=== PATIENT | male | born 1985 ===

== ENCOUNTER 2017-01-26 12:48 | Emergency (ER) | payer OTHER ==
--- NOTE | 2017-01-26 15:13 | DIAGNOSTIC IMAGING REPORT ---
PROCEDURE: CT ABD/PELVIS WITH CONTRAST INDICATION: Right abdominal pain. Nausea and vomiting. Prior cholecystectomy. TECHNIQUE: 145 ml of Isovue 300 were injected intravenously and axial images were obtained of the entire abdomen and pelvis with sagittal and coronal reformations. COMPARISON: Compared to CT abdomen pelvis on 11/06/2010. FINDINGS: ABDOMEN: Status post cholecystectomy (surgical clips). Moderate to marked fatty infiltration of the liver. Liver is otherwise normal. Borderline splenomegaly (13.5 cm) with a 2 cm accessory splenic nodule. Pancreas, kidneys, and aorta are normal. Bowel pattern is normal, including a medially located appendix. PELVIS: Pelvic structures are normal. No evidence of free fluid. IMPRESSION: 1. Status post cholecystectomy. 2. Moderate to marked fatty infiltration of the liver. 3. Borderline splenomegaly (13.5 cm). 4. Otherwise negative CT abdomen and pelvis. 5. Findings discussed with Dr. Mikey Galo. All CT scans at this facility use dose modulation, iterative reconstruction, and/or weight-based dosing when appropriate to reduce radiation dose to as low as reasonably achievable.
--- NOTE | 2017-01-26 15:50 | ED NURSING NOTES ---
Clinical Report - Nurses [facility] [place] [address] 01/26/2017 12:51 Patient: JEMAL SMITH TRIAGE Triage time 12:59. Acuity: LEVEL 3. Chief Complaint: ABDOMINAL PAIN, NAUSEA, VOMITING and DIARRHEA. SEPSIS SCREEN: Sepsis Screen. Negative (no infection suspected/documented). --13:04 Marjan Herrera R.N. 12:59 01/26/17. BP: 120/65 (large adult cuff) taken on the left arm, while lying. HR: 106. RR: 20. O2 saturation: 95%. Temp: 99 F. Pain level now: 04/24. --13:04 Marjan Herrera R.N. Weight: 154.2 kg stated. Height/Length: 70 inches Per Patient. BMI: 48.8. --13:00 Marjan Herrera R.N. Medications None. --13:00 Marjan Herrera R.N. Allergies Sulfa. --13:00 Marjan Herrera R.N. History Arrived by private vehicle. Historian: patient. Primary physician (sue haas md). This started today. He has had nausea, vomiting, diarrhea and abdominal pain. Last oral intake by patient was (3 hours ago). SOCIAL HX: Former smoker, end date 1996. No alcohol use or drug use. No recent travel. No infectious disease exposure. No known contact with a sick individual. ABUSE ASSESSMENT: No report of abuse. --13:04 Marjan Herrera R.N. PROBLEMS: Gastroesophageal Reflux Disease. Gastroenteritis. --13:00 Marjan Herrera R.N. ADDITIONAL SURGERIES: Cholecystectomy. Gallbladder Surgery. --13:00 Marjan Herrera R.N. Interventions ID band on patient. To treatment room. --13:04 Marjan Herrera R.N. PHYSICAL ASSESSMENT GENERAL / NEURO / PSYCH: Oriented X 4. Appears in no acute distress. Appears anxious. RESPIRATORY: Respirations not labored. Breath sounds within normal limits. CVS: Normal sinus rhythm noted. GI / : Abdominal tenderness. Hyperactive bowel sounds in all quadrants. SKIN: Skin is warm and dry. --13:18 Marjan Herrera R.N. NURSING PROGRESS NOTES ( pt vomited approx 100 green emesis). --13:19 Marjan Herrera R.N. 13:32 01/26/2017 Site #1 started via IV in the right antecubital space with an 20g angiocath, with aseptic technique and good blood return; one attempt. Blood drawn: rainbow set. Labeled in the presence of the patient and sent to the lab. Saline lock flushed with 10 mL saline. --13:33 Hallie Lockett R.N. 13:56 01/26/2017 Started bag #1 1000 mL IV Fluids IV NS (Saline); bolus of 1000 mL over 1 hour(s) via site #1. Allergies verified and confirmed 5 rights. IV patency established. IV site checked: no pain, redness, or swelling. IV flushed thoroughly pre- and post-medication administration. --13:57 Hallie Lockett R.N. 13:57 01/26/2017 Zofran (Ondansetron HCl) IVP 4 mg given over 2 minute(s) via site #1. Allergies verified and confirmed 5 rights. IV patency established. IV site checked: no pain, redness, or swelling. IV flushed thoroughly pre- and post-medication administration. IVP given by RN. --13:57 Hallie Lockett R.N. 14:38 01/26/17. BP: 120/85. HR: 104. RR: 16. O2 saturation: 99%. Pain level now: 12/23. --14:39 Hallie Lockett R.N. Patient ID band checked for patient name and birthdate: patient confirmed. Instructions provided to collect clean catch urine and patient verbalized understanding. Clean catch urine collected with return of yellow-colored clear urine; sample sent to lab for urinalysis and culture. Specimen labeled in the presence of the patient. Patient walked to [place] with tech. (14:47 Jan 26 2017). --14:48 Hallie Lockett R.N. 15:07 01/26/2017 Bentyl (Dicyclomine HCl) PO 20 mg given. Allergies verified and confirmed 5 rights. --15:07 Hallie Lockett R.N. DISPOSITION / DISCHARGE Departure time: 16:Jan 26 2017. Condition at departure: improved. No learning barriers present. Discharge instructions provided and reviewed with the patient. Reviewed medication(s) side effects, precautions, dosing and course information. Prescription(s) given to the patient. Reviewed referral to a primary care physician. Work note given. Patient verbalized understanding. Written instructions provided in Gabonese. The patient was discharged home and accompanied by spouse. He left the Emergency Department ambulatory and via private vehicle. Spouse driving. --16:01 Hallie Lockett R.N. 16:00 01/26/17. BP: 125/101. HR: 113. RR: 16. O2 saturation: 97%. Pain level now: 11/25. --16:01 Hallie Lockett R.N. 16:02 01/26/2017 Site #1 removed upon discharge. Bandaid applied. --16:03 Hallie Lockett R.N. Locked/Released at 01/26/2017 16:08 by Hallie Lockett R.N.
--- NOTE | 2017-01-26 15:50 | ED NURSING NOTES ---
Clinical Report - Nurses [facility] [place] [address] 01/26/2017 12:51 Patient: JEMAL SMITH TRIAGE Triage time 12:59. Acuity: LEVEL 3. Chief Complaint: ABDOMINAL PAIN, NAUSEA, VOMITING and DIARRHEA. SEPSIS SCREEN: Sepsis Screen. Negative (no infection suspected/documented). --13:04 Marjan Herrera R.N. 12:59 01/26/17. BP: 120/65 (large adult cuff) taken on the left arm, while lying. HR: 106. RR: 20. O2 saturation: 95%. Temp: 99 F. Pain level now: 04/24. --13:04 Marjan Herrera R.N. Weight: 154.2 kg stated. Height/Length: 70 inches Per Patient. BMI: 48.8. --13:00 Marjan Herrera R.N. Medications None. --13:00 Marjan Herrera R.N. Allergies Sulfa. --13:00 Marjan Herrera R.N. History Arrived by private vehicle. Historian: patient. Primary physician (sue haas md). This started today. He has had nausea, vomiting, diarrhea and abdominal pain. Last oral intake by patient was (3 hours ago). SOCIAL HX: Former smoker, end date 1996. No alcohol use or drug use. No recent travel. No infectious disease exposure. No known contact with a sick individual. ABUSE ASSESSMENT: No report of abuse. --13:04 Marjan Herrera R.N. PROBLEMS: Gastroesophageal Reflux Disease. Gastroenteritis. --13:00 Marjan Herrera R.N. ADDITIONAL SURGERIES: Cholecystectomy. Gallbladder Surgery. --13:00 Marjan Herrera R.N. Interventions ID band on patient. To treatment room. --13:04 Marjan Herrera R.N. PHYSICAL ASSESSMENT GENERAL / NEURO / PSYCH: Oriented X 4. Appears in no acute distress. Appears anxious. RESPIRATORY: Respirations not labored. Breath sounds within normal limits. CVS: Normal sinus rhythm noted. GI / : Abdominal tenderness. Hyperactive bowel sounds in all quadrants. SKIN: Skin is warm and dry. --13:18 Marjan Herrera R.N. NURSING PROGRESS NOTES ( pt vomited approx 100 green emesis). --13:19 Marjan Herrera R.N. 13:32 01/26/2017 Site #1 started via IV in the right antecubital space with an 20g angiocath, with aseptic technique and good blood return; one attempt. Blood drawn: rainbow set. Labeled in the presence of the patient and sent to the lab. Saline lock flushed with 10 mL saline. --13:33 Hallie Lockett R.N. 13:56 01/26/2017 Started bag #1 1000 mL IV Fluids IV NS (Saline); bolus of 1000 mL over 1 hour(s) via site #1. Allergies verified and confirmed 5 rights. IV patency established. IV site checked: no pain, redness, or swelling. IV flushed thoroughly pre- and post-medication administration. --13:57 Hallie Lockett R.N. 13:57 01/26/2017 Zofran (Ondansetron HCl) IVP 4 mg given over 2 minute(s) via site #1. Allergies verified and confirmed 5 rights. IV patency established. IV site checked: no pain, redness, or swelling. IV flushed thoroughly pre- and post-medication administration. IVP given by RN. --13:57 Hallie Lockett R.N. 14:38 01/26/17. BP: 120/85. HR: 104. RR: 16. O2 saturation: 99%. Pain level now: 12/23. --14:39 Hallie Lockett R.N. Patient ID band checked for patient name and birthdate: patient confirmed. Instructions provided to collect clean catch urine and patient verbalized understanding. Clean catch urine collected with return of yellow-colored clear urine; sample sent to lab for urinalysis and culture. Specimen labeled in the presence of the patient. Patient walked to [place] with tech. (14:47 Jan 26 2017). --14:48 Hallie Lockett R.N. 15:07 01/26/2017 Bentyl (Dicyclomine HCl) PO 20 mg given. Allergies verified and confirmed 5 rights. --15:07 Hallie Lockett R.N. DISPOSITION / DISCHARGE Departure time: 16:Jan 26 2017. Condition at departure: improved. No learning barriers present. Discharge instructions provided and reviewed with the patient. Reviewed medication(s) side effects, precautions, dosing and course information. Prescription(s) given to the patient. Reviewed referral to a primary care physician. Work note given. Patient verbalized understanding. Written instructions provided in Cypriot. The patient was discharged home and accompanied by spouse. He left the Emergency Department ambulatory and via private vehicle. Spouse driving. --16:01 Hallie Lockett R.N. 16:00 01/26/17. BP: 125/101. HR: 113. RR: 16. O2 saturation: 97%. Pain level now: 11/25. --16:01 Hallie Lockett R.N. 16:02 01/26/2017 Site #1 removed upon discharge. Bandaid applied. --16:03 Hallie Lockett R.N. Locked/Released at 01/26/2017 16:08 by Hallie Lockett R.N.
--- NOTE | 2017-01-26 15:50 | ED ORDER SUMMARY ---
..... Patient: JEMAL SMITH OrderSheet [facility] VisitID: [id number] [place] [address] 31y, M Registration Date/Time: 01/26/2017 ORDER SHEET Weight: 154.2 kg (stated) Allergies: Sulfa GENERAL ORDERS: CBC w Diff Urgent (13:49 01/26/2017 Jax Hernandez) (Ack 13:50 David) (13:56 KKnebel R.N.) CMP Urgent (13:49 01/26/2017 Jax Hernandez) (Ack 13:50 David) (13:56 Shelbybel R.N.) UA-Culture if indicated Urgent (13:49 01/26/2017 Jax Hernandez) (Ack 13:50 David) (15:08 KKnebel R.N.) Amylase Urgent (13:49 01/26/2017 Jax Hernandez) (Ack 13:50 David) (13:56 KKnebel R.N.) Lipase Urgent (13:49 01/26/2017 Jax Hernandez) (Ack 13:50 David) (13:56 TODDnebel R.N.) CT Abd/Pel w Cont (No) (09/15) Urgent (14:36 01/26/2017 Jax Hernandez) (Ack 14:37 David) (15:05 [place]) MEDICATION ORDERS: Bentyl PO 20 mg (NOW) (14:35 01/26/2017 Jax Hernandez) (15:07 TODDnechely R.N.) IV FLUIDS: IV NS : initial bolus none -, then 1000 mL/hr for X1 (NOW) (13:48 01/26/2017 Jax Hernandez) (13:57 Haven R.N.) Zofran IV 4 mg (NOW) (13:48 01/26/2017 Jax Hernandez) (13:57 Haven R.N.) ORDER SHEET NOTES: [Electronically signed by Mikey Galo Dr. (15:52 01/26/2017)] [Electronically signed by Hallie Lockett R.N. (16:01/26/2017)] [Electronically locked/signed by Hallie Lockett R.N. (16:01/26/2017)]
--- NOTE | 2017-01-26 15:50 | ED CLINICAL REPORT ---
Clinical Report - Physicians/Mid Levels [facility] [address] [place] [address] 01/26/2017 12:51 Patient: JEMAL SMITH Time Seen: 12:58; initial patient contact. Arrived- By private vehicle. Historian- patient. HISTORY OF PRESENT ILLNESS Chief Complaint: VOMITING and DIARRHEA. This started today and is still present (persistent). It was abrupt in onset and has been constant. The patient has had nausea, vomiting, diarrhea and abdominal pain. No black stools, bloody stools, constipation, flank pain or known contact with a sick individual. Has not recently been on antibiotics. The illness is described as moderate. Similar symptoms previously: None. Recent medical care: Not recently seen/assessed. REVIEW OF SYSTEMS No fever, difficulty with urination or dark urine. All systems otherwise negative, except as recorded above. PAST HISTORY Gastroesophageal Reflux Disease. Gastroenteritis. SURGERIES: Cholecystectomy. Medications: None. Allergies: Sulfa. SOCIAL HISTORY Former smoker. No alcohol use or drug use. ADDITIONAL NOTES The nursing notes have been reviewed. PHYSICAL EXAM Vital Signs: 01/26/2017 12:59 BP: 120/65. HR: 106. RR: 20. O2 saturation: 95%. Temp: 99 F. Pain level now: 7/10. Have been reviewed. Blood pressure normal. Tachycardic. Respiratory rate normal. Temperature normal. Oxygen saturation normal. Appearance: Alert. Oriented X3. Patient in mild distress. Eyes: Eyes normal inspection. No scleral icterus. ENT: Dry mucous membranes present. CVS: Tachycardia. Heart sounds normal. Rhythm normal. Respiratory: No respiratory distress. Breath sounds normal. Abdomen: Soft. Mild tenderness diffusely. No guarding, rebound tenderness or obturator or psoas sign present. Bowel sounds normal. No organomegaly. No mass. Obese. Back: Normal inspection. No CVA tenderness. Skin: Skin warm and dry. Normal skin color. No rash. Extremities: No lower extremity edema. Neuro: Oriented X 3. LABS, X-RAYS, AND EKG Abdominal CT: 1. Status post cholecystectomy. 2. Moderate to marked fatty infiltration of the liver. 3. Borderline splenomegaly (13.5 cm). 4. Otherwise negative CT abdomen and pelvis. Study type: abdomen and pelvis. Abdominal CT performed with IV contrast. The study was independently viewed by me, interpreted by the radiologist and discussed with the radiologist. Interpretation time: 15:42. Laboratory Tests: CBC w Diff: (MENDOZA: 01/26/2017 13:30) ( MsgRcvd 01/26/2017 14:01) Final results Test Result Flag Units (Reference) WHITE BLOOD COUNT 16.4 H K/uL (4.5-11.5) RED BLOOD COUNT 5.89 M/uL (4.50-5.90) HEMOGLOBIN 15.5 gm/dL (13.5-17.5) HEMATOCRIT 47.4 % (41.0-53.0) MEAN CELL VOLUME 80 fL (80-100) MEAN CORPUSCULAR HGB 26 pg (26-34) MEAN CORPUSCULAR HGB CONC 33 g/dL (31-37) RED CELL DISTRIBUTION WIDTH 15.3 H % (11.6-14.8) PLATELET COUNT 338 K/uL (150-400) NEUTROPHIL % 89.0 H % (50-75) LYMPH % 5.2 L % (25-40) MONO % 4.4 % (3-14) EOSINOPHIL % 0.9 % (0-4) BASOPHIL % 0.5 % (0-2) CMP: (MENDOZA: 01/26/2017 13:30) ( MsgRcvd 01/26/2017 14:11) Final results Test Result Flag Units (Reference) GLUCOSE 123 H mg/dL (70-110) BUN 12 mg/dL (7-18) CREATININE 1.0 mg/dL (0.6-1.3) Estimated GFR >60 mL/min Estimated GFR- >60 mL/min Note: Persistent reduction over 3 months in eGFR<60 mL/min/1.73 m2 defines CKD. Patients with eGFR values>=60 mL/min/1.73 m2 may also have CKD if evidence ofpersistent proteinuria. Additional information may be foundat www.kidney.org. SODIUM 138 mmol/L (136-145) POTASSIUM 3.9 mmol/L (3.5-5.1) CHLORIDE 104 mmol/L (98-107) CARBON DIOXIDE 24 mmol/L (21-32) CALCIUM 8.7 mg/dL (8.5-10.1) TOTAL PROTEIN 8.8 H g/dL (6.4-8.2) ALBUMIN 3.5 g/dL (3.3-5.0) BILIRUBIN, TOTAL 0.5 mg/dL (0.0-1.0) ALKALINE PHOSPHATASE 139 H U/L (46-116) AST (SGOT) 25 U/L (15-37) ALT (SGPT) 43 U/L (12-78) LIPASE 103 U/L (73-393) AMYLASE 34 U/L (25-115) . PROGRESS AND PROCEDURES Disposition: Discharged home in good and improved condition. Condition: good. CLINICAL IMPRESSION Viral gastroenteritis. Mild leukocytosis. INSTRUCTIONS Do not work today, tomorrow. Drink plenty of fluids. Your Current Medications: CONTINUE TAKING THE FOLLOWING MEDICATIONS: None*. Prescription Medications: Bentyl 20 mg tablets: take 1 orally every 6 hours as needed for abdominal cramps or abdominal discomfort. Dispense thirty (30). Substitution is permissible. Zofran ODT 4 mg: take 1 orally every 6 hours as needed for nausea and vomiting. Dispense ten (10). No refill. Substitution is permissible. Follow-up: Follow up with your doctor in about four days if not well. Screening today revealed the patient's blood pressure to be in the pre-hypertensive range. The patient should follow up with a primary care provider for blood pressure management. (Electronically signed by Mikey Galo Dr. 01/26/2017 15:52)
--- NOTE | 2017-01-26 15:50 | ED ORDER SUMMARY ---
..... Patient: JEMAL SMITH OrderSheet [facility] VisitID: [id number] [place] [address] 31y, M Registration Date/Time: 01/26/2017 ORDER SHEET Weight: 154.2 kg (stated) Allergies: Sulfa GENERAL ORDERS: CBC w Diff Urgent (13:49 01/26/2017 Jax Hernandez) (Ack 13:50 David) (13:56 KKnebel R.N.) CMP Urgent (13:49 01/26/2017 Jax Hernandez) (Ack 13:50 David) (13:56 Shelbybel R.N.) UA-Culture if indicated Urgent (13:49 01/26/2017 Jax Hernandez) (Ack 13:50 David) (15:08 KKnebel R.N.) Amylase Urgent (13:49 01/26/2017 Jax Hernandez) (Ack 13:50 David) (13:56 KKnebel R.N.) Lipase Urgent (13:49 01/26/2017 Jax Hernandez) (Ack 13:50 David) (13:56 TODDnebel R.N.) CT Abd/Pel w Cont (No) (09/15) Urgent (14:36 01/26/2017 Jax Hernandez) (Ack 14:37 David) (15:05 [place]) MEDICATION ORDERS: Bentyl PO 20 mg (NOW) (14:35 01/26/2017 Jax Hernandez) (15:07 TODDnechely R.N.) IV FLUIDS: IV NS : initial bolus none -, then 1000 mL/hr for X1 (NOW) (13:48 01/26/2017 Jax Hernandez) (13:57 Haven R.N.) Zofran IV 4 mg (NOW) (13:48 01/26/2017 Jax Hernandez) (13:57 Haven R.N.) ORDER SHEET NOTES: [Electronically signed by Mikey Galo Dr. (15:52 01/26/2017)] [Electronically signed by Hallie Lockett R.N. (16:01/26/2017)] [Electronically locked/signed by Hallie Lockett R.N. (16:01/26/2017)]
--- NOTE | 2017-01-26 16:08 | ED MED RECONCILIATION SUMMARY ---
Patient: JEMAL SMITH Medication Reconciliation Report [facility] VisitID: [id number] [place] [address] 31y, M Registration Date/Time: 01/26/2017 Weight: 154.2 kg Height/Length: 70 in. BMI: 48.8 ALLERGIES: Sulfa The patient's Home Medications are listed below: NONE. The source(s) of the original Home Medication information: Not obtained. The following Medications were given to the patient in the Emergency Department: IV NS IV Fluids bolus 1000 mL over 1 hour(s), administered: 01/26/2017 1:56:00 PM Zofran [IVP] IVP 4 mg, administered: 01/26/2017 1:57:00 PM Bentyl [PO] PO 20 mg, administered: 01/26/2017 3:07:00 PM The following Medications were prescribed to the patient: Bentyl 20 mg tablets: take 1 orally every 6 hours as needed for abdominal cramps or abdominal discomfort. Dispense thirty (30). Substitution is permissible. -- Mikey Galo Dr. Zofran ODT 4 mg: take 1 orally every 6 hours as needed for nausea and vomiting. Dispense ten (10). No refill. Substitution is permissible. -- Mikey Galo Dr.
--- NOTE | 2017-01-26 16:08 | ED MAR SUMMARY ---
..... Medication Administration Record [facility] [address] [place] [address] Patient: JEMAL SMITH Visit ID: [id number] 31y, M Weight: 154.2 kg Height/Length: 70 in BMI: 48.8 ALLERGIES: Sulfa Start 13:56 01/26/2017 Hallie Lockett R.N. Medication Administered: IV NS (SALINE), Dose: IV Fluids, Bolus: 1000 mL over 1 hour(s), Dispensed: 1000 mL bag, Site: #1 right AC. Medication Ordered: IV NS : initial bolus none -, then 1000 mL/hr for X1 (NOW). Given 13:57 01/26/2017 Hallie Lockett R.N. Medication Administered: ZOFRAN [IVP] (ONDANSETRON HCL), Dose: 4 mg IVP over 2 minute(s), Site: #1 right AC. Medication Ordered: Zofran IV 4 mg (NOW). Given 15:07 01/26/2017 Hallie Lockett R.N. Medication Administered: BENTYL [PO] (DICYCLOMINE HCL), Dose: 20 mg PO. Medication Ordered: Bentyl PO 20 mg (NOW).
--- NOTE | 2017-01-26 16:08 | ED MAR SUMMARY ---
..... Medication Administration Record [facility] [address] [place] [address] Patient: JEMAL SMITH Visit ID: [id number] 31y, M Weight: 154.2 kg Height/Length: 70 in BMI: 48.8 ALLERGIES: Sulfa Start 13:56 01/26/2017 Hallie Lockett R.N. Medication Administered: IV NS (SALINE), Dose: IV Fluids, Bolus: 1000 mL over 1 hour(s), Dispensed: 1000 mL bag, Site: #1 right AC. Medication Ordered: IV NS : initial bolus none -, then 1000 mL/hr for X1 (NOW). Given 13:57 01/26/2017 Hallie Lockett R.N. Medication Administered: ZOFRAN [IVP] (ONDANSETRON HCL), Dose: 4 mg IVP over 2 minute(s), Site: #1 right AC. Medication Ordered: Zofran IV 4 mg (NOW). Given 15:07 01/26/2017 Hallei Lockett R.N. Medication Administered: BENTYL [PO] (DICYCLOMINE HCL), Dose: 20 mg PO. Medication Ordered: Bentyl PO 20 mg (NOW).
--- NOTE | 2017-01-26 16:08 | ED MED RECONCILIATION SUMMARY ---
Patient: JEMAL SMITH Medication Reconciliation Report [facility] VisitID: [id number] [place] [address] 31y, M Registration Date/Time: 01/26/2017 Weight: 154.2 kg Height/Length: 70 in. BMI: 48.8 ALLERGIES: Sulfa The patient's Home Medications are listed below: NONE. The source(s) of the original Home Medication information: Not obtained. The following Medications were given to the patient in the Emergency Department: IV NS IV Fluids bolus 1000 mL over 1 hour(s), administered: 01/26/2017 1:56:00 PM Zofran [IVP] IVP 4 mg, administered: 01/26/2017 1:57:00 PM Bentyl [PO] PO 20 mg, administered: 01/26/2017 3:07:00 PM The following Medications were prescribed to the patient: Bentyl 20 mg tablets: take 1 orally every 6 hours as needed for abdominal cramps or abdominal discomfort. Dispense thirty (30). Substitution is permissible. -- Mikey Galo Dr. Zofran ODT 4 mg: take 1 orally every 6 hours as needed for nausea and vomiting. Dispense ten (10). No refill. Substitution is permissible. -- Mikey Galo Dr.
--- NOTE | 2017-01-26 16:08 | ED DISCHARGE INSTRUCTIONS ---
Patient: JEMAL SMITH General Instructions [facility] VisitID: [id number] [place] [address] 31y, M Registration Date/Time: 01/26/2017 Viral gastroenteritis. Mild leukocytosis. INSTRUCTIONS Do not work today, tomorrow. Drink plenty of fluids. Your Current Medications: CONTINUE TAKING THE FOLLOWING MEDICATIONS: None*. Prescription Medications: Bentyl 20 mg tablets: take 1 orally every 6 hours as needed for abdominal cramps or abdominal discomfort. Dispense thirty (30). Substitution is permissible. Zofran ODT 4 mg: take 1 orally every 6 hours as needed for nausea and vomiting. Dispense ten (10). No refill. Substitution is permissible. Follow-up: Follow up with your doctor in about four days if not well. Screening today revealed the patient's blood pressure to be in the pre-hypertensive range. The patient should follow up with a primary care provider for blood pressure management. ADDITIONAL INFORMATION Viral Gastroenteritis (6Yr-Adult) Gastroenteritis is another name for thestomach flu.It is most often caused by a virus that affects the stomach and intestinal tract. Symptoms include stomach cramping and fever, vomiting and/or diarrhea, and can last from 2 to 7 days. The danger from repeated vomiting or diarrhea is dehydration. This is the loss of too much water and minerals from the body. When this occurs, body fluids must be replaced. Antibiotics are not effective for this illness, but simple home treatment will be helpful. Home Care If symptoms are severe, rest at home for the next 24 hours. Avoid tobacco, caffeine, and alcohol use, which can worsen symptoms. Acetaminophen (Tylenol) or ibuprofen (Motrin, Advil) may be usedfor fever or pain unless another medication was prescribed. NOTE: If you have chronic liver or kidney disease or ever had a stomach ulcer or GI bleeding, talk with your doctor before using these medicines. Aspirin should never be used in anyone under 18 years of age who is ill with a fever. It may cause severe liver damage. If medicines for diarrhea or vomiting were prescribed, be sure they are takenonly as directed. If vomiting, drink small amounts of clear fluids (such as water, sports drinks, clear sodas) at frequent intervals to prevent dehydration. Start with 1 to 2 tablespoons every 10 minutes. Once vomiting stops, follow these guidelines: During The First 12 To 24 Hours follow the diet below: Beverages: Sport drinks like Gatorade, soft drinks without caffeine; gil luna, mineral water (plain or flavored), decaffeinated tea and coffee. Soups: Clear broth, consomm and bouillon Desserts: Plain gelatin (Jell-O), Popsicles and fruit juice bars. During The Next 24 Hours you may add the following to the above: Hot cereal, plain toast, bread, rolls, crackers Plain noodles, rice, mashed potatoes, chicken noodle or rice soup Unsweetened canned fruit (avoid pineapple), bananas Limit fat intake to less than 15 grams per day by avoiding margarine, butter, oils, mayonnaise, sauces, gravies, fried foods, peanut butter, meat, poultry, and fish. Limit fiber; avoid raw or cooked vegetables, fresh fruits (except bananas), and bran cereals. Limit caffeine and chocolate. Do not use spices or seasonings except salt. During The Next 24 Hours The patient can gradually resume a normal diet as symptoms lessen. Preventing Spread Hand washing with soap and water is the best way to prevent the spread of viruses. Caregivers should wash their hands before andafter touching the sick person. The sick person, as well as everyone in the family,should wash their hands after using the toilet and before meals. Clean the toilet after each use. People with diarrhea should not prepare food for others. If you are preparing your own foods, wash your hands before and after. Follow Up with your doctor as advised. Call your doctor if you are not improving over the next 2 to 3 days. If a stool (diarrhea) sample was taken, you may call in 2 days (or as directed) for the results. Get Prompt Medical Attention if any of the following occur: Increasing abdominal pain Continued vomiting (unable to keep liquids down) Frequent diarrhea (more than 5 times a day) Blood in vomit or stool (black or red color) Dark urine, reduced urine output, or extreme thirst Weakness, dizziness, fainting Drowsiness, confusion, stiff neck, or seizure Fever of 100.4F (38C) oral or higher, not better with fever medication New rash Dicyclomine Hydrochloride Oral tablet What is this medicine? DICYCLOMINE (dye RUBENE sugar blas) is used to treat bowel problems including irritable bowel syndrome. How should I use this medicine? Take this medicine by mouth with a glass of water. Follow the directions on the prescription label. It is best to take this medicine on an empty stomach, 30 minutes to 1 hour before meals. Take your medicine at regular intervals. Do not take your medicine more often than directed. Talk to your petroleum refinery operator regarding the use of this medicine in children. Special care may be needed. While this drug may be prescribed for children as young as 6 months of age for selected conditions, precautions do apply. Patients over 65 years old may have a stronger reaction and need a smaller dose. What side effects may I notice from receiving this medicine? Side effects that you should report to your doctor or health care team assistant as soon as possible: agitation, nervousness, confusion difficulty swallowing dizziness, drowsiness fast or slow heartbeat hallucinations pain or difficulty passing urine Side effects that usually do not require medical attention (report to your doctor or health care team assistant if they continue or are bothersome): constipation headache nausea or vomiting sexual difficulty What may interact with this medicine? amantadine antacids benztropine digoxin disopyramide medicines for allergies, colds and breathing difficulties medicines for alzheimer's disease medicines for anxiety or sleeping problems medicines for depression or psychotic disturbances medicines for diarrhea medicines for pain metoclopramide tegaserod What if I miss a dose? If you miss a dose, take it as soon as you can. If it is almost time for your next dose, take only that dose. Do not take double or extra doses. Where should I keep my medicine? Keep out of the reach of children. Store at room temperature below 30 degrees C (86 degrees F). Protect from light. Throw away any unused medicine after the expiration date. What should I tell my health care provider before I take this medicine? They need to know if you have any of these conditions: difficulty passing urine esophagus problems or heartburn glaucoma heart disease, or previous heart attack myasthenia gravis prostate trouble stomach infection, or obstruction ulcerative colitis an unusual or allergic reaction to dicyclomine, other medicines, foods, dyes, or preservatives or trying to get breast-feeding What should I watch for while using this medicine? You may get drowsy, dizzy, or have blurred vision. Do not drive, use machinery, or do anything that needs mental alertness until you know how this medicine affects you. To reduce the risk of dizzy or fainting spells, do not sit or stand up quickly, especially if you are an older patient. Alcohol can make you more drowsy, avoid alcoholic drinks. Stay out of bright light and wear sunglasses if this medicine makes your eyes more sensitive to light. Avoid extreme heat (hot tubs, saunas). This medicine can cause you to sweat less than normal. Your body temperature could increase to dangerous levels, which may lead to heat stroke. Antacids can stop this medicine from working. If you get an upset stomach and want to take an antacid, make sure there is an interval of at least 1 to 2 hours before or after you take this medicine. Your mouth may get dry. Chewing sugarless gum or sucking hard candy, and drinking plenty of water may help. Contact your doctor if the problem does not go away or is severe. Ondansetron Oral disintegrating tablet What is this medicine? ONDANSETRON (on ELLA se catarino) is used to treat nausea and vomiting caused by chemotherapy. It is also used to prevent or treat nausea and vomiting after surgery. How should I use this medicine? These tablets are made to dissolve in the mouth. Do not try to push the tablet through the foil backing. With dry hands, peel away the foil backing and gently remove the tablet. Place the tablet in the mouth and allow it to dissolve, then swallow. While you may take these tablets with water, it is not necessary to do so. Talk to your petroleum refinery operator regarding the use of this medicine in children. Special care may be needed. What side effects may I notice from receiving this medicine? Side effects that you should report to your doctor or health care team assistant as soon as possible: allergic reactions like skin rash, itching or hives, swelling of the face, lips, or tongue breathing problems dizziness fast or irregular heartbeat feeling faint or lightheaded, falls fever and chills swelling of the hands and feet tightness in the chest Side effects that usually do not require medical attention (report to your doctor or health care team assistant if they continue or are bothersome): constipation or diarrhea headache What may interact with this medicine? Do not take this medicine with any of the following medications: -apomorphine -cisapride -dofetilide -dronedarone -pimozide -thioridazine -ziprasidone This medicine may also interact with the following medications: -carbamazepine -phenytoin -rifampicin -tramadol -other medicines that prolong the QT interval (cause an abnormal heart rhythm) What if I miss a dose? If you miss a dose, take it as soon as you can. If it is almost time for your next dose, take only that dose. Do not take double or extra doses. Where should I keep my medicine? Keep out of the reach of children. Store between 2 and 30 degrees C (36 and 86 degrees F). Throw away any unused medicine after the expiration date. What should I tell my health care provider before I take this medicine? They need to know if you have any of these conditions: heart disease history of irregular heartbeat liver disease low levels of magnesium or potassium in the blood an unusual or allergic reaction to ondansetron, granisetron, other medicines, foods, dyes, or preservatives or trying to get breast-feeding What should I watch for while using this medicine? Check with your doctor or health care team assistant as soon as you can if you have any sign of an allergic reaction. You have been given the following additional information: Gastroenteritis, Viral (6Y-Adult) Dicyclomine Hydrochloride Oral tablet Ondansetron Oral disintegrating tablet Do not work today, tomorrow. (Electronically signed by Mikey Galo Dr. 01/26/2017 15:52)
== END 2017-01-26 16:00 | disposition home or self-care (01) ==
LOC: ED SRH 12:48
DX: A08.4 Viral intestinal infection, unspecified (principal); D72.829 Elevated white blood cell count, unspecified; K21.9 Gastro-esophageal reflux disease without esophagitis; Z88.2 Allergy status to sulfonamides
CPT/HCPCS: 90004; 90100; 92235; 92530; 95059